=== PATIENT | female | born 1935 | race Caucasian/White ===

== ENCOUNTER 2019-04-28 19:26 | Inpatient (IN) | payer MEDICARE, OTHER ==
[2019-04-28] MEDS ORDERED: Enalaprilat Dihydrate 1.25 MG/ML VIAL SLOW IVP PRN (20:57)
[2019-04-28] MEDS ORDERED: hydrALAZINE 20 MG/ML VIAL SLOW IVP PRN (20:57)
[2019-04-28] MEDS ORDERED: Labetalol HCl 100 MG/20 ML VIAL SLOW IVP PRN (20:57)
[2019-04-28 21:37] LABS: #Basophils 0.1 thou/uL (0.0-0.2); #Eosinphils 0.3 thou/uL (0.0-0.7); #Lymphocytes 2.3 thou/uL (1.20-3.40); #Monocytes 0.9 thou/uL (0.11-0.59); #Neutrophils 8.3 thou/uL (1.40-6.50); %Basophils 0.9 % (0.0-1.0); %Eosinophils 2.5 % (0.0-10.0); %Lymphocytes 19.5 % (21.0-51.0); %Monocytes 7.3 % (0.0-10.0); %Neutrophils 69.9 % (42.0-75.0); Hemoglobin 15.9 g/dL (12.0-16.0); Mean Corpuscular HGB CONC 32.3 g/dL (32.0-36.0); Mean Corpuscular Hemoglobin 29.5 pg (27.0-31.0); Mean Corpuscular Volume 91.3 fL (78.0-98.0); Mean Platelet Volume 7.7 fL (7.4-10.4); Platelet Count 454 thou/uL (130-400); RBC Distribution Width 14.7 % (11.5-14.5); Red Blood Cell (RBC) Count 5.38 mill/uL (4.20-5.40); White Blood Cell (WBC) Count 11.9 thou/uL (4.8-10.8)
[2019-04-28 21:41] LABS: Anion Gap 13 mmol/L (10-20); BUN (Urea Nitrogen) 16 mg/dL (9.8-20.1); Calc. Creatinine Clearance 0 mL/min (70-130); Calcium 9.1 mg/dL (7.8-10.44); Carbon Dioxide 25 mmol/L (23-31); Chloride 104 mmol/L (98-107); Estimated GFR-MDRD 37; Glucose 111 mg/dL (83-110); Potassium 3.5 mmol/L (3.5-5.1); Sodium 138 mmol/L (136-145)
[2019-04-29 00:04] VITALS: BMI 28.4
[2019-04-29] MEDS ORDERED: Bisacodyl 10 MG SUPP PR PRN (02:06)
[2019-04-29] MEDS ORDERED: Senokot S 8.6-50 MG TAB PO PRN (02:06)
[2019-04-29] MEDS ORDERED: Guaifenesin DM 100-10/5 ML UDCUP PO PRN (02:06)
--- NOTE | 2019-04-29 02:45 | HP ---
REASON FOR ADMISSION: Acute CVA. HISTORY OF PRESENTING ILLNESS: The patient gives history of having slurred speech from last Friday. She also fell yesterday and bumped on her left leg. She has also been feeling weak on the left lower extremity. She was initially taken to [facility], from where she was transferred here. She was found to have facial weakness with 7th nerve palsy as well. She normally ambulates with a cane or walker. No prior history of stroke. She in fact had gone to see her reception agent, Dr. Vaughn, yesterday morning when he sent her to the emergency room as she was having symptoms of stroke. Blood pressure on arrival was 203/96. Has no complains of chest pain, palpitations, or PND. States she does not ambulate much beyond the activities of daily living. PAST MEDICAL AND SURGICAL HISTORY: The patient follows up with Dr. Cordova for her heart. She thinks she might have had a stress test recently. No history of cardiac disease or stenting in the past as far as she knows. No history of atrial fibrillation. The son at bedside mentions she might have peripheral vascular disease, hypothyroidism, likely chronic kidney disease and sees Dr. Vaughn, left total hip replacement. CURRENT MEDICATIONS: The patient is on hydralazine 25 mg twice daily, clonidine 0.1 mg twice daily, Toprol extended release 50 mg daily, levothyroxine 150 mcg p.o. daily. The patient is not taking statins. ALLERGIES: NO KNOWN DRUG ALLERGIES. PERSONAL HISTORY: Quit smoking 15 years ago prior to which has smoked 1 pack a day for nearly 40 years. Does not abuse alcohol or drugs. Lives with her . FAMILY HISTORY: Mother of pancreatic cancer at the age of 83. Father of natural causes at the age of 96 years. CODE STATUS: Do not attempt to resuscitate. This was confirmed with the patient. The son is at bedside as well. REVIEW OF SYSTEMS: CONSTITUTIONAL: Negative for weight loss or gain, ability to conduct usual activities. SKIN: Negative for rash, itching. EYES: Negative for double vision, pain. ENT/MOUTH: Negative for nose bleeding, neck stiffness, pain, tenderness. CARDIOVASCULAR: Negative for palpitations, dyspnea on exertion, orthopnea. RESPIRATORY: Negative for shortness of breath, wheezing, cough, hemoptysis, fever or night sweats. GASTROINTESTINAL: Negative for poor appetite, abdominal pain, heartburn, nausea , vomiting, constipation, or diarrhea. GENITOURINARY: Negative for urgency, frequency, dysuria, nocturia. MUSCULOSKELETAL: Negative for pain, swelling. NEUROLOGIC/PSYCHIATRIC: Negative for anxiety, depression. ALLERGY/IMMUNOLOGIC: Negative for skin rash, bleeding tendency. PHYSICAL EXAMINATION: GENERAL: The patient is an 83-year-old female who is currently not in any acute distress. VITAL SIGNS: Blood pressure 203/97, pulse 68 per minute, respiratory rate 18 per minute, temperature 98.5 degrees Fahrenheit, saturating 94% on room air. NECK: Supple. No elevated JVD. HEENT: Eyes; extraocular muscles intact. Pupils reacting to light. Oral cavity, mucous membranes are moist. No exudates or congestion. CARDIOVASCULAR SYSTEM: S1-S2 heard. Regular rhythm. RESPIRATORY SYSTEM: Air entry 1+ bilateral. No rales or rhonchi. ABDOMEN: Soft. Bowel sounds heard. No tenderness, rigidity, or guarding. EXTREMITIES: No peripheral edema or calf tenderness. VASCULAR SYSTEM: Peripheral pulses 1+ bilateral. No ischemic ulcerations or gangrene. CENTRAL NERVOUS SYSTEM: The patient has 7th nerve palsy with flattening of right nasolabial fold. Strength is 4/5 in the right upper and lower extremities, 5/5 in left upper and lower extremities. Reflexes are 2+ bilateral. Babinski is downgoing. PSYCHIATRIC SYSTEM: Patient's mood is euthymic. No hallucinations or delusions. LABORATORY DATA: EKG done shows sinus rhythm at 69 beats per minute. There is nonspecific ST-T wave changes noted. White count of 11.9, H and H 15 and 49, platelet count 454, MCV is 91, BUN 16, creatinine 1.3, serum glucose 111, bicarb is 25, albumin 3.8. Liver enzymes within normal limits. CK-MB 0.7. Troponin less than 0.01. CK level is 23. PT/INR, PTT within normal limits. Chest x-ray done shows pulmonary vascular congestion. CT brain without contrast done showed there was superimposed hypoattenuation watershed distribution age-indeterminate infarct in the posterior left cerebral hemisphere. Chronic microvascular ischemic changes were seen. CLINICAL IMPRESSION AND PLAN: Patient will be admitted to the Stroke Unit for acute CVA. She will be on stroke order set. We will obtain PT/OT, Speech, and Neurology consultations, MRI without contrast, echo with 2D Doppler, and carotid Dopplers will be obtained as well. The patient has hypertensive emergency and we will increase her clonidine to 0.1 mg three times daily, hydralazine to 25 mg 3 times daily. Add Lopressor 25 mg twice daily. She will be on aspirin, Lipitor 40 mg p.o. at bedtime. We will continue her home dose of Synthroid, DuoNeb q.6 hourly. We will continue to closely monitor her on Stroke Unit. Job ID: [id number] [facility]
[2019-04-29 04:34] LABS: #Basophils 0.1 thou/uL (0.0-0.2); #Eosinphils 0.4 thou/uL (0.0-0.7); #Lymphocytes 2.6 thou/uL (1.20-3.40); #Monocytes 0.9 thou/uL (0.11-0.59); #Neutrophils 7.8 thou/uL (1.40-6.50); %Basophils 0.7 % (0.0-1.0); %Lymphocytes 22.4 % (21.0-51.0); %Monocytes 7.3 % (0.0-10.0); %Neutrophils 66.5 % (42.0-75.0); Hemoglobin 16.1 g/dL (12.0-16.0); Mean Corpuscular HGB CONC 32.2 g/dL (32.0-36.0); Mean Corpuscular Hemoglobin 29.5 pg (27.0-31.0); Mean Corpuscular Volume 91.5 fL (78.0-98.0); Mean Platelet Volume 7.7 fL (7.4-10.4); Platelet Count 464 thou/uL (130-400); RBC Distribution Width 14.7 % (11.5-14.5); Red Blood Cell (RBC) Count 5.47 mill/uL (4.20-5.40); White Blood Cell (WBC) Count 11.7 thou/uL (4.8-10.8)
[2019-04-29 04:58] LABS: Anion Gap 14 mmol/L (10-20); BUN (Urea Nitrogen) 18 mg/dL (9.8-20.1); Calc. Creatinine Clearance 39 mL/min (70-130); Calcium 9.7 mg/dL (7.8-10.44); Carbon Dioxide 28 mmol/L (23-31); Cardiac Risk 5.9 (Less than 4.5); Chloride 103 mmol/L (98-107); Cholesterol 201 mg/dl (< 200 Desired); Estimated GFR-MDRD 36; Glucose 110 mg/dL (83-110); HDL Cholesterol 34 mg/dL (>60 Neg Risk); LDL Cholesterol, Calculated 131 mg/dL; Potassium 3.5 mmol/L (3.5-5.1); Sodium 141 mmol/L (136-145); Triglycerides 180 mg/dL (Less than 150)
[2019-04-29] MEDS: Levothyroxine 150 MCG TAB PO SCH (06:02)
[2019-04-29] MEDS ORDERED: cloNIDine 0.1 MG TAB PO SCH (09:00)
[2019-04-29] MEDS ORDERED: hydrALAZINE 25 MG TAB PO SCH (09:00)
[2019-04-29] MEDS ORDERED: Aspirin 81 mg Enteric Coated Tablet PO SCH (09:00)
[2019-04-29] MEDS ORDERED: Enoxaparin Sodium 30 MG/0.3 ML SYRINGE SC SCH (09:00)
[2019-04-29] MEDS: Metoprolol Tartrate 25 MG TAB PO SCH ×2 (09:30→20:27)
[2019-04-29] MEDS: cloNIDine 0.1 MG TAB PO SCH ×3 (09:30→20:26)
[2019-04-29] MEDS: hydrALAZINE 25 MG TAB PO SCH ×3 (09:30→20:27)
[2019-04-29] MEDS: Acetaminophen 325 MG TAB PO PRN (09:33)
[2019-04-29] MEDS ORDERED: Ondansetron PF 4 MG/2 ML Vial IVP PRN (10:49)
[2019-04-29] MEDS ORDERED: Ondansetron ODT 4 MG TAB PO PRN (10:49)
[2019-04-29] MEDS ORDERED: Labetalol HCl 100 MG/20 ML VIAL SLOW IVP PRN (10:50)
[2019-04-29] MEDS ORDERED: cloNIDine 0.1 MG TAB PO PRN (10:50)
--- NOTE | 2019-04-29 12:03 | MRI ---
MRI BRAIN WITHOUT CONTRAST: HISTORY: Stroke FINDINGS: There is restricted diffusion in the left posterior parietal cortex with focal areas of high T1 signa l. There are foci of low signal in this region on the gradient echo sequence. There is a small foci of restricted diffusion in the right posterior frontal lobe. There are multiple foci of T2 prolongation in the periventricular white matter, consistent with chron ic small vessel ischemic disease. The ventricular size is appropriate and the basilar cisterns are patent. There are changes of cortical atrophy. No evidence of midline shift or abnormal extra-axial f luid collections is seen. The visualized paranasal sinuses and mastoid air cells are well-aerated. IMPRESSION: 1. Acute left parietal lobe hemorrhagic infarction. 2. Acute nonhemorrhagic lacunar infarctions in the right posterior frontal lobe.
--- NOTE | 2019-04-29 14:11 | CON ---
DATE OF TELEMEDICINE CONSULTATION: 04-29-19 CHIEF COMPLAINT: Acute stroke. HISTORY OF PRESENT ILLNESS: Son and gave the medical history. The patient was at her renal doctor's office and she had slurred speech and facial droop, and they think she might have had weakness of the left side and this gradually progressed since last Friday and she was brought to the hospital. PREVIOUS MEDICAL HISTORY: Positive for hypothyroidism, chronic kidney disease. I think it is secondary to renal artery blockage and hypertension, and she also was tested for coronary artery disease. PAST SURGICAL HISTORY: As noted in the chart. No recent surgery, but the patient has been known to have peripheral vascular disease. Left total hip replacement. MEDICATIONS: At home: 1. Hydralazine. 2. Clonidine. 3. Toprol extended release. 4. Levothyroxine. She is not on any statins or aspirin. ALLERGIES: NO KNOWN DRUG ALLERGIES. PERSONAL HISTORY: She quit smoking 15 years ago prior to which she smoked one pack a day for 40 years. She does not abuse alcohol or drugs. She lives with her . FAMILY HISTORY: Mother of pancreatic cancer at age of 83. Father of natural causes at the age of 96 years. The patient's brother is 75. He had a heart attack about 6 weeks ago. Sister is 77 and healthy. The patient has a son, who is healthy. REVIEW OF SYSTEMS: Not reliable due to the patient's mental status and level of alertness. LABORATORY WORKUP: White count 11.7, hemoglobin 16.1, hematocrit 50, platelets 464. Sodium 141, potassium 3.5, chloride 103, bicarb 28, BUN 18, creatinine 1.39, glucose 110. BNP 1888.6, triglycerides 180, cholesterol 201, LDL 131, HDL 34. Report, MRI of the brain was completed at the time of this dictation and she had a left parietal lobe hemorrhagic infarct, acute nonhemorrhagic lacunes in the right posterior frontal lobe. PHYSICAL EXAMINATION: GENERAL APPEARANCE: Well-built, well-nourished lady. VITAL SIGNS: Temperature 97.6, pulse 54, O2 sats 92%, and blood pressure 157/ 73. CHEST: Clear vesicular breathing. CARDIOVASCULAR: S1 and S2 heard. No murmurs. ABDOMEN: Soft. NEUROLOGIC: Higher intellectual functions. Normal orientation to time, but sleepy. She is oriented to place and person. Cranial nerves, left facial droop and normal sensation of face bilaterally. Normal extraocular movements. Tongue midline. Normal hearing bilaterally and normal elevation of palate. Motor bulk normal. Tone normal. Strength 4/5 throughout with slight worsening on the left side compared to the right, but she was sleepy and did not put in good effort. Cerebellar, normal [id number] and [id number]. Sensory normal bilaterally. IMPRESSION AND RECOMMENDATIONS: The patient is an 83-year-old lady with chronic kidney disease and hypertension. She seems to have had change in her speech as well as facial droop. At this time, she was drowsy and could not give us full effort, but seems to be sleepy and not very confused, but oriented to place, time, and person. Her examination showed left-sided facial asymmetry and mild weakness on the left side. Her clinical exam findings are more from the acute nonhemorrhagic lacunar infarct in the right posterior frontal lobe and the left parietal lobe hemorrhagic infarct is likely causing her sleepiness and sedation, and the size of this hemorrhagic infarct is also small. Okay to add statin for right now and I will order a CT of the head to make sure there is no hemorrhage on the CT scan tomorrow and if the CT is negative, then we can start her on aspirin. I will follow up the patient again tomorrow. She also has other microvascular ischemic changes on the MRI sufficient enough to cause some cognitive issues. This needs to be reviewed at a later stage. Job ID: [id number] [facility]
[2019-04-29] MEDS ORDERED: Amlodipine 5 MG TAB PO SCH (15:00)
[2019-04-29] MEDS: Atorvastatin Calcium 40 MG TAB PO SCH (20:26)
--- NOTE | 2019-04-29 23:02 | PRG ---
DATE OF SERVICE: 04/29/2019 SUBJECTIVE: An 83-year-old female with peripheral vascular disease and CKD, presented to the hospital with stroke-like symptoms. Her blood pressure on arrival was 203/96. She denies any new focal deficit. Her mentation is gradually improving. She denies any new focal deficit. No chest pain, shortness of breath, palpitations, or seizures reported. REVIEW OF SYSTEMS: As discussed above. No nausea, vomiting, cough, shortness of breath, wheezing reported. CURRENT MEDICATIONS: Reviewed. Telemetry monitoring by my review showed sinus rhythm OBJECTIVE: VITAL SIGNS: Temperature 97.6, pulse rate of 54, respirations of 20, blood pressure was significantly elevated at 231/115 this morning, O2 saturation 92% on room air, respirations of 20. GENERAL: An 83-year-old female, in no apparent distress. Denies any new focal deficit. HEENT: Head, atraumatic and normocephalic. Sclerae anicteric. Moist mucous membranes. No oral lesion. NECK: Supple. No JVD. No carotid bruit. LUNGS: Clear to auscultation bilaterally. No wheezing, rales, or rhonchi. HEART: S1 and S2 present. Regular rate and rhythm. No rubs or gallops. ABDOMEN: Soft, nontender. Bowel sounds present. EXTREMITIES: No edema or calf tenderness. NEUROLOGIC: Cranial nerves 2 through 12 are normal on examination. Power was 4/5 on the left compared to the right. Sensation to touch was normal bilaterally. SKIN: Warm and dry. LYMPH NODE: No palpable lymph nodes in the neck. DIAGNOSTIC TESTS: MRI of the brain showed acute left parietal lobe hemorrhagic infarction as well as acute nonhemorrhagic lacunar infarction in the right posterior frontal lobe. Echocardiogram showed left ventricular ejection fraction of 55% to 60% with mild tricuspid regurgitation and trace mitral regurgitation. WBC was 11.9 with hemoglobin 15.9. Creatinine 1.39 with BUN 18. Fasting lipid showed triglyceride 180, cholesterol 201, LDL 131, HDL 34. BNP was 1888. IMPRESSION: 1. Acute left parietal lobe hemorrhagic infarction. 2. Acute nonhemorrhagic lacunar infarctions in the right posterior frontal lobe. 3. Hypertensive urgency. 4. Chronic kidney disease, stage 3. 5. Peripheral vascular disease. 6. Dyslipidemia. 7. History of renal artery stenosis. 8. Hypothyroidism. PLAN: The patient will be monitored in the stroke unit. Stroke Team has been consulted. The patient is do not resuscitate. I discussed the case with Nephrology, Dr. Koby Vaughn. Dr. Vaughn recommended to add amlodipine 5 mg daily for uncontrolled blood pressure. We will continue clonidine, hydralazine, and metoprolol. CT scan of the brain will be repeated per Neurology recommendation in a.m. We will hold aspirin for now due to hemorrhagic CVA. We will also hold Lovenox for DVT prophylaxis for now. Continue levothyroxine. Continue Physical Therapy and Occupational Therapy evaluation. The patient will probably need rehab placement. Plan of care was discussed with the patient and the family at the bedside. They stated understanding. Job ID: [id number]
[2019-04-29] MEDS: Melatonin 3 MG TAB PO PRN (23:24)
[2019-04-30] MEDS: Levothyroxine 150 MCG TAB PO SCH (06:44)
[2019-04-30] MEDS ORDERED: Amlodipine 5 MG TAB PO SCH (09:00)
[2019-04-30] MEDS ORDERED: Aspirin 325 mg Enteric Coated Tablet PO SCH (09:00)
--- NOTE | 2019-04-30 10:24 | CT ---
CT Brain WO Con: 04/30/2019 7:00 AM CLINICAL HISTORY: Hemorrhagic stroke. IMAGING TECHNIQUE: Multiple CT images were obtained of the brain without IV contrast. COMPARISON: MRI of the brain without contrast dated April 29, 2019 11:49 AM FINDINGS: Brain: The hemorrhagic infarct involving the left parietal region appears stable. Small remote lacun ar infarct involving the subcortical white matter of the right frontal region is stable. Severe chronic small vessel white matter ischemic changes stable. No midline shift is evident. Ventricles: Normal. No hydrocephalus.. Skull: Intact.. Visualized Paranasal sinuses: Clear.. Mastoid air cells:Clear. Extracranial soft tissues:Normal. IMPRESSION: Stable evolutionary changes involving the hemorrhagic infarct of the left parietal lobe. Stable small remote subcortical lacunar infarcts involving the right frontal lobe. No midline shift demonstrated.
[2019-04-30] MEDS: cloNIDine 0.1 MG TAB PO SCH ×3 (10:34→20:26)
[2019-04-30] MEDS: hydrALAZINE 25 MG TAB PO SCH ×3 (10:35→20:27)
[2019-04-30] MEDS: Metoprolol Tartrate 25 MG TAB PO SCH ×2 (10:35→20:27)
[2019-04-30] MEDS: Melatonin 3 MG TAB PO PRN (20:25)
[2019-04-30] MEDS: Atorvastatin Calcium 40 MG TAB PO SCH (20:25)
--- NOTE | 2019-04-30 22:41 | PDOC.HOSPP ---
- Subjective Encounter Date: 04/30/19 Encounter Time: 17:00 Subjective: Patient seen and examined for Acute CVA. No new focal deficits. No new complaints. No overnight events - Objective Vital Signs & Weight: Vital Signs (12 hours) Temp Pulse Resp BP BP Pulse Ox 04/30/19 20:27 62 180/88 H 04/30/19 20:26 180/88 H 04/30/19 20:00 98.4 F 67 18 157/74 H 93 L 04/30/19 15:55 97.6 F 59 L 17 93 L 04/30/19 15:28 185/86 H 04/30/19 15:27 56 L 185/86 H 04/30/19 12:20 57 L 18 146/62 H 04/30/19 11:48 97.9 F 78 17 210/110 H 93 L Weight Weight 176 lb 6.4 oz I&O: 04/29/19 04/30/19 05/01/19 06:59 06:59 06:59 Intake Total 450 901 480 Balance 450 901 480 Result Diagrams: 04/29/19 04:01 04/29/19 04:01 EKG Reviewed by me: Yes (Tele SR) Hospitalist ROS - Review of Systems Cardiovascular: denies: chest pain, palpitations, orthopnea, paroxysmal noc. dyspnea, edema, light headedness, other Gastrointestinal: denies: nausea, vomiting, abdominal pain, diarrhea, constipation, melena, hematochezia, other - Medication Medications: Active Medications Generic Name Dose Route Start Last Admin Trade Name Freq PRN Reason Stop Dose Admin Acetaminophen 650 mg 04/29/19 02:06 04/29/19 09:33 Tylenol PO 650 mg Q4H PRN Administration Headache/Fever/Mild Pain (1-3) Albuterol/Ipratropium 3 ml 04/29/19 07:00 04/30/19 19:13 Duoneb NEB Not Given [id number] EMILY Amlodipine Besylate 5 mg 04/30/19 09:00 04/30/19 10:34 Norvasc PO 5 mg DAILY EMILY Administration Atorvastatin Calcium 40 mg 04/29/19 21:00 04/30/19 20:25 Lipitor PO 40 mg HS EMILY Administration Clonidine 0.1 mg 04/29/19 09:00 04/30/19 20:26 Catapres PO 0.1 mg TID EMILY Administration Clonidine 0.1 mg 04/29/19 10:50 04/29/19 23:34 Catapres PO 0.1 mg Q4H PRN Administration SBP Greater Than 180 Enalaprilat 1.25 mg 04/28/19 20:57 04/29/19 07:57 Vasotec SLOW IVP 1.25 mg Q6H PRN Administration BP > 220/110 Hydralazine HCl 25 mg 04/29/19 09:00 04/30/19 20:27 Apresoline PO 25 mg TID EMILY Administration Levothyroxine Sodium 150 mcg 04/29/19 06:00 04/30/19 06:44 Synthroid PO Not Given 0600 EMILY Melatonin 3 mg 04/29/19 20:56 04/30/19 20:25 Melatonin PO 3 mg HS PRN Administration Insomnia Metoprolol Tartrate 25 mg 04/29/19 09:00 04/30/19 20:27 Lopressor PO 25 mg BID EMILY Administration Ondansetron HCl 4 mg 04/29/19 10:49 04/29/19 11:00 Zofran IVP 4 mg Q6H PRN Administration Nausea/Vomiting Sodium Chloride 10 ml 04/29/19 02:06 04/29/19 20:27 Flush - Normal Saline IVF 10 ml PRN PRN Administration Saline Flush - Exam General Appearance: NAD Neck: supple, no JVD Heart: RRR, no gallops Respiratory: CTAB, no rales Gastrointestinal: soft, non-tender, normal bowel sounds Extremities: no edema Neurological: no new deficit Hosp A/P - Plan DVT proph w/SCDs IMPRESSION: 1. Acute left parietal lobe hemorrhagic infarction. 2. Acute nonhemorrhagic lacunar infarctions in the right posterior frontal lobe. 3. Hypertensive urgency. 4. Chronic kidney disease, stage 3. 5. Peripheral vascular disease. 6. Dyslipidemia. 7. History of renal artery stenosis. 8. Hypothyroidism. PLAN: Repeat CT reviewed Dr Marshall recommended 81 mg ASA for stroke prophylaxis. Cont current anti HTN meds If BP uncontrolled - may increase Amlodipine to 5 mg BID if needed per Dr Vaughn AM labs PT/OT Cont other meds
[2019-05-01 04:39] LABS: #Basophils 0.1 thou/uL (0.0-0.2); #Eosinphils 0.4 thou/uL (0.0-0.7); #Lymphocytes 2.4 thou/uL (1.20-3.40); #Monocytes 0.9 thou/uL (0.11-0.59); #Neutrophils 6.8 thou/uL (1.40-6.50); %Basophils 0.7 % (0.0-1.0); %Eosinophils 3.5 % (0.0-10.0); %Monocytes 8.2 % (0.0-10.0); %Neutrophils 64.6 % (42.0-75.0); Hemoglobin 14.4 g/dL (12.0-16.0); Mean Corpuscular HGB CONC 31.1 g/dL (32.0-36.0); Mean Corpuscular Hemoglobin 28.6 pg (27.0-31.0); Mean Corpuscular Volume 92.2 fL (78.0-98.0); Mean Platelet Volume 7.8 fL (7.4-10.4); Platelet Count 457 thou/uL (130-400); RBC Distribution Width 14.7 % (11.5-14.5); Red Blood Cell (RBC) Count 5.02 mill/uL (4.20-5.40); White Blood Cell (WBC) Count 10.6 thou/uL (4.8-10.8)
[2019-05-01 05:03] LABS: Anion Gap 13 mmol/L (10-20); BUN (Urea Nitrogen) 19 mg/dL (9.8-20.1); Calc. Creatinine Clearance 40 mL/min (70-130); Calcium 9.3 mg/dL (7.8-10.44); Carbon Dioxide 27 mmol/L (23-31); Chloride 103 mmol/L (98-107); Estimated GFR-MDRD 37; Glucose 104 mg/dL (83-110); Magnesium 1.9 mg/dL (1.6-2.6); Potassium 3.5 mmol/L (3.5-5.1); Sodium 139 mmol/L (136-145)
[2019-05-01] MEDS: Levothyroxine 150 MCG TAB PO SCH (06:01)
[2019-05-01] MEDS: cloNIDine 0.1 MG TAB PO SCH ×3 (08:55→21:14)
[2019-05-01] MEDS: hydrALAZINE 25 MG TAB PO SCH ×3 (08:56→21:12)
[2019-05-01] MEDS: Metoprolol Tartrate 25 MG TAB PO SCH ×2 (08:56→21:14)
[2019-05-01] MEDS: Amlodipine 10 MG TAB PO SCH (08:57)
[2019-05-01] MEDS: Aspirin 81 mg Enteric Coated Tablet PO SCH (08:57)
--- NOTE | 2019-05-01 13:15 | PDOC.HOSPP ---
- Subjective Encounter Date: 05/01/19 Encounter Time: 07:00 Subjective: Pt seen for followup re: hemorrhagic stroke. Denies chest pain or shortness of breath. - Objective Vital Signs & Weight: Vital Signs (12 hours) Temp Pulse Pulse Pulse Resp BP BP 05/01/19 12:03 98.2 F 60 16 05/01/19 09:55 66 67 173/80 H 05/01/19 08:57 65 195/91 H 05/01/19 08:56 65 195/91 H 05/01/19 08:55 195/91 H 05/01/19 07:56 98.3 F 65 16 05/01/19 04:32 05/01/19 03:44 57 L 199/80 H 05/01/19 03:20 98.3 F 67 18 BP BP Pulse Ox 05/01/19 12:03 158/73 H 92 L 05/01/19 09:55 166/77 H 05/01/19 08:57 05/01/19 08:56 05/01/19 08:55 05/01/19 07:56 203/93 H 93 L 05/01/19 04:32 184/87 H 05/01/19 03:44 05/01/19 03:20 176/101 H 93 L Weight Weight 176 lb 6.4 oz I&O: 04/30/19 05/01/19 05/02/19 06:59 06:59 05:59 Intake Total 901 720 240 Balance 901 720 240 Result Diagrams: 05/01/19 04:05 05/01/19 04:05 Additional Labs: Labs and MARs reviewed by ms Hospitalist ROS - Review of Systems Cardiovascular: denies: chest pain, palpitations, orthopnea, paroxysmal noc. dyspnea, edema, light headedness Gastrointestinal: denies: nausea, vomiting, abdominal pain, diarrhea, constipation, melena, hematochezia - Medication Medications: Active Medications Generic Name Dose Route Start Last Admin Trade Name Freq PRN Reason Stop Dose Admin Acetaminophen 650 mg 04/29/19 02:06 04/29/19 09:33 Tylenol PO 650 mg Q4H PRN Administration Headache/Fever/Mild Pain (1-3) Albuterol/Ipratropium 3 ml 04/29/19 07:00 05/01/19 07:01 Duoneb NEB Not Given [id number] EMILY Amlodipine Besylate 10 mg 05/01/19 09:00 05/01/19 08:57 Norvasc PO 10 mg DAILY EMILY Administration Aspirin 81 mg 05/01/19 09:00 05/01/19 08:57 Ecotrin PO 81 mg DAILY EMILY Administration Atorvastatin Calcium 40 mg 04/29/19 21:00 04/30/19 20:25 Lipitor PO 40 mg HS EMILY Administration Clonidine 0.1 mg 04/29/19 09:00 05/01/19 08:55 Catapres PO 0.1 mg TID EMILY Administration Clonidine 0.1 mg 04/29/19 10:50 04/29/19 23:34 Catapres PO 0.1 mg Q4H PRN Administration SBP Greater Than 180 Enalaprilat 1.25 mg 04/28/19 20:57 04/29/19 07:57 Vasotec SLOW IVP 1.25 mg Q6H PRN Administration BP > 220/110 Hydralazine HCl 10 mg 04/28/19 20:57 05/01/19 03:44 Apresoline SLOW IVP 10 mg Q4H PRN Administration BP > 220/110 Hydralazine HCl 50 mg 05/01/19 09:00 05/01/19 08:56 Apresoline PO 50 mg TID EMILY Administration Levothyroxine Sodium 150 mcg 04/29/19 06:00 05/01/19 06:01 Synthroid PO 150 mcg 0600 EMILY Administration Melatonin 3 mg 04/29/19 20:56 04/30/19 20:25 Melatonin PO 3 mg HS PRN Administration Insomnia Metoprolol Tartrate 25 mg 04/29/19 09:00 05/01/19 08:56 Lopressor PO 25 mg BID EMILY Administration Ondansetron HCl 4 mg 04/29/19 10:49 04/29/19 11:00 Zofran IVP 4 mg Q6H PRN Administration Nausea/Vomiting Sodium Chloride 10 ml 04/29/19 02:06 04/29/19 20:27 Flush - Normal Saline IVF 10 ml PRN PRN Administration Saline Flush - Exam General Appearance: NAD Eye: anicteric sclera ENT: moist mucosa Neck: supple Heart: RRR Respiratory: CTAB Gastrointestinal: soft, non-tender Skin: no rashes Psychiatric: normal affect, normal behavior Hosp A/P - Plan PT/OT, out of bed/ambulate, DVT proph w/SCDs IMPRESSION: 1. Hypertensive urgency. 2. Chronic kidney disease, stage 3. 3. Acute left parietal lobe hemorrhagic infarction. 4. Acute nonhemorrhagic lacunar infarctions in the right posterior frontal lobe. 5. Peripheral vascular disease. 6. Dyslipidemia. 7. History of renal artery stenosis. 8. Hypothyroidism. PLAN: 81 mg ASA for stroke prophylaxis. Increase amlodipine to 10 mg daily and hydralazine to 50 mg PO TID. Continue metoprolol. Continue synthroid.
[2019-05-01] MEDS: Melatonin 3 MG TAB PO PRN (21:11)
[2019-05-01] MEDS: Atorvastatin Calcium 40 MG TAB PO SCH (21:12)
[2019-05-01] MEDS ORDERED: Artificial Tear Sol 15 ML BOT EA EYE PRN (21:59)
[2019-05-02] MEDS: Levothyroxine 150 MCG TAB PO SCH (06:15)
[2019-05-02] MEDS: cloNIDine 0.1 MG TAB PO SCH ×3 (09:23→22:05)
[2019-05-02] MEDS: hydrALAZINE 25 MG TAB PO SCH ×3 (09:23→22:06)
[2019-05-02] MEDS: Aspirin 81 mg Enteric Coated Tablet PO SCH (09:24)
[2019-05-02] MEDS: Metoprolol Tartrate 25 MG TAB PO SCH ×2 (09:25→22:07)
[2019-05-02] MEDS: Amlodipine 10 MG TAB PO SCH (09:25)
--- NOTE | 2019-05-02 15:33 | PDOC.HOSPP ---
- Subjective Encounter Date: 05/02/19 Encounter Time: 07:00 Subjective: Pt seen for followup re: hypertensive urgency. No new complaints today. No headache. - Objective Vital Signs & Weight: Vital Signs (12 hours) Temp Pulse Resp BP BP Pulse Ox 05/02/19 15:27 166/81 H 05/02/19 15:26 62 166/81 H 05/02/19 15:12 98.5 F 61 20 166/81 H 93 L 05/02/19 11:25 98.2 F 58 L 20 167/75 H 92 L 05/02/19 09:25 72 204/96 H 05/02/19 09:23 72 204/96 H 05/02/19 08:00 94 L 05/02/19 07:20 98.6 F 68 20 213/91 H 94 L Weight Weight 176 lb 6.4 oz I&O: 05/01/19 05/02/19 05/03/19 07:59 06:59 06:59 Intake Total 120 Balance 120 Result Diagrams: 05/01/19 04:05 05/01/19 04:05 Additional Labs: Labs and MARs reviewed by me EKG Reviewed by me: Yes (Tele: NSR) Hospitalist ROS - Review of Systems Cardiovascular: denies: chest pain, palpitations, orthopnea, paroxysmal noc. dyspnea, edema, light headedness Neurological: denies: weakness, numbness, incoordination, change in speech, confusion, seizures - Medication Medications: Active Medications Generic Name Dose Route Start Last Admin Trade Name Freq PRN Reason Stop Dose Admin Acetaminophen 650 mg 04/29/19 02:06 04/29/19 09:33 Tylenol PO 650 mg Q4H PRN Administration Headache/Fever/Mild Pain (1-3) Albuterol/Ipratropium 3 ml 04/29/19 07:00 05/02/19 12:49 Duoneb NEB Not Given P8CV-EQ EMILY Amlodipine Besylate 10 mg 05/01/19 09:00 05/02/19 09:25 Norvasc PO 10 mg DAILY EMILY Administration Aspirin 81 mg 05/01/19 09:00 05/02/19 09:24 Ecotrin PO 81 mg DAILY EMILY Administration Atorvastatin Calcium 40 mg 04/29/19 21:00 05/01/19 21:12 Lipitor PO 40 mg HS EMILY Administration Clonidine 0.1 mg 04/29/19 09:00 05/02/19 15:27 Catapres PO 0.1 mg TID EMILY Administration Clonidine 0.1 mg 04/29/19 10:50 04/29/19 23:34 Catapres PO 0.1 mg Q4H PRN Administration SBP Greater Than 180 Enalaprilat 1.25 mg 04/28/19 20:57 04/29/19 07:57 Vasotec SLOW IVP 1.25 mg Q6H PRN Administration BP > 220/110 Hydralazine HCl 10 mg 04/28/19 20:57 05/01/19 03:44 Apresoline SLOW IVP 10 mg Q4H PRN Administration BP > 220/110 Hydralazine HCl 75 mg 05/02/19 15:00 05/02/19 15:26 Apresoline PO 75 mg TID EMILY Administration Levothyroxine Sodium 150 mcg 04/29/19 06:00 05/02/19 06:15 Synthroid PO 150 mcg 0600 EMILY Administration Melatonin 3 mg 04/29/19 20:56 05/01/19 21:11 Melatonin PO 3 mg HS PRN Administration Insomnia Metoprolol Tartrate 25 mg 04/29/19 09:00 05/02/19 09:25 Lopressor PO 25 mg BID EMILY Administration Ondansetron HCl 4 mg 04/29/19 10:49 04/29/19 11:00 Zofran IVP 4 mg Q6H PRN Administration Nausea/Vomiting Sodium Chloride 10 ml 04/29/19 02:06 04/29/19 20:27 Flush - Normal Saline IVF 10 ml PRN PRN Administration Saline Flush - Exam General Appearance: NAD, awake alert Eye: anicteric sclera ENT: normocephalic atraumatic, no oropharyngeal lesions Neck: supple, no thyromegaly Heart: RRR, no rubs Respiratory: CTAB Gastrointestinal: soft, non-tender, normal bowel sounds Extremities: no clubbing Psychiatric: normal affect, normal behavior Hosp A/P - Plan IMPRESSION: 1. Hypertensive urgency. 2. Chronic kidney disease, stage 3. 3. Acute nonhemorrhagic lacunar infarctions in the right posterior frontal lobe. 4. Acute left parietal lobe hemorrhagic infarction. 5. Peripheral vascular disease. 6. Dyslipidemia. 7. History of renal artery stenosis. 8. Hypothyroidism. PLAN: Blood pressure is still high, increase hydralazine to 75 mg PO TID. Continuje 81 mg ASA for secondary stroke prophylaxis. Continue synthroid. Continue atorvastatin.
[2019-05-02] MEDS: Atorvastatin Calcium 40 MG TAB PO SCH (22:06)
[2019-05-02] MEDS: Melatonin 3 MG TAB PO PRN (22:12)
[2019-05-03] MEDS: Levothyroxine 150 MCG TAB PO SCH (06:27)
[2019-05-03] MEDS ORDERED: Metoprolol Tartrate 50 MG TAB PO SCH (09:00)
[2019-05-03] MEDS: Acetaminophen 325 MG TAB PO PRN ×2 (09:14→15:29)
[2019-05-03] MEDS: cloNIDine 0.1 MG TAB PO SCH ×2 (10:22→15:57)
[2019-05-03] MEDS: Amlodipine 10 MG TAB PO SCH (10:24)
[2019-05-03] MEDS: hydrALAZINE 25 MG TAB PO SCH ×2 (10:25→15:57)
[2019-05-03] MEDS: Aspirin 81 mg Enteric Coated Tablet PO SCH (10:27)
--- NOTE | 2019-05-03 12:34 | PDOC.HOSPP ---
- Subjective Encounter Date: 05/03/19 Encounter Time: 07:00 Subjective: Pt seen for followup re: hypertensive urgency. Nausea+, no other complaints. - Objective Vital Signs & Weight: Vital Signs (12 hours) Temp Pulse Resp BP BP Pulse Ox 05/03/19 11:00 97.9 F 60 18 150/74 H 93 L 05/03/19 10:25 71 206/93 H 05/03/19 10:24 71 206/93 H 05/03/19 10:22 206/93 H 05/03/19 03:49 98.2 F 68 18 171/79 H 91 L Weight Weight 176 lb 6.4 oz I&O: 05/02/19 05/03/19 05/04/19 06:59 06:59 06:59 Intake Total 480 480 Balance 480 480 Result Diagrams: 05/01/19 04:05 05/01/19 04:05 Additional Labs: Labs and MARs reviewed by me EKG Reviewed by me: Yes (Tele: NSR) Hospitalist ROS - Review of Systems Cardiovascular: denies: chest pain, palpitations, orthopnea, paroxysmal noc. dyspnea, edema, light headedness Gastrointestinal: reports: nausea. denies: vomiting, abdominal pain, diarrhea, constipation, melena, hematochezia - Medication Medications: Active Medications Generic Name Dose Route Start Last Admin Trade Name Freq PRN Reason Stop Dose Admin Acetaminophen 650 mg 04/29/19 02:06 05/03/19 09:14 Tylenol PO 325 mg Q4H PRN Administration Headache/Fever/Mild Pain (1-3) Albuterol/Ipratropium 3 ml 04/29/19 07:00 05/03/19 07:27 Duoneb NEB Not Given [id number]-PR EMILY Amlodipine Besylate 10 mg 05/01/19 09:00 05/03/19 10:24 Norvasc PO 10 mg DAILY EMILY Administration Artificial Tears 0 drop 05/01/19 21:59 05/02/19 22:04 Liquitears 15ml Bottle EA EYE 1 drop PRN PRN Administration Dry Eyes Aspirin 81 mg 05/01/19 09:00 05/03/19 10:27 Ecotrin PO 81 mg DAILY EMILY Administration Atorvastatin Calcium 40 mg 04/29/19 21:00 05/02/19 22:06 Lipitor PO 40 mg HS EMILY Administration Clonidine 0.1 mg 04/29/19 09:00 05/03/19 10:22 Catapres PO 0.1 mg TID EMILY Administration Clonidine 0.1 mg 04/29/19 10:50 04/29/19 23:34 Catapres PO 0.1 mg Q4H PRN Administration SBP Greater Than 180 Enalaprilat 1.25 mg 04/28/19 20:57 04/29/19 07:57 Vasotec SLOW IVP 1.25 mg Q6H PRN Administration BP > 220/110 Hydralazine HCl 10 mg 04/28/19 20:57 05/01/19 03:44 Apresoline SLOW IVP 10 mg Q4H PRN Administration BP > 220/110 Hydralazine HCl 75 mg 05/02/19 15:00 05/03/19 10:25 Apresoline PO 75 mg TID EMILY Administration Levothyroxine Sodium 150 mcg 04/29/19 06:00 05/03/19 06:27 Synthroid PO 150 mcg 0600 EMILY Administration Melatonin 3 mg 04/29/19 20:56 05/02/19 22:12 Melatonin PO 3 mg HS PRN Administration Insomnia Metoprolol Tartrate 50 mg 05/03/19 09:00 05/03/19 10:23 Lopressor PO 50 mg BID EMILY Administration Ondansetron HCl 4 mg 04/29/19 10:49 05/03/19 09:12 Zofran Odt PO 4 mg Q6H PRN Administration Nausea/Vomiting Ondansetron HCl 4 mg 04/29/19 10:49 04/29/19 11:00 Zofran IVP 4 mg Q6H PRN Administration Nausea/Vomiting Sodium Chloride 10 ml 04/29/19 02:06 04/29/19 20:27 Flush - Normal Saline IVF 10 ml PRN PRN Administration Saline Flush - Exam General Appearance: NAD, awake alert Eye: PERRL ENT: normocephalic atraumatic, no oropharyngeal lesions Neck: symmetric, no carotid bruit Heart: RRR, no rubs Respiratory: CTAB Gastrointestinal: soft, non-tender Musculoskeletal: normal strength Psychiatric: normal affect, normal behavior Hosp A/P - Plan plan discussed w/ family, PT/OT, out of bed/ambulate IMPRESSION: 1. Hypertensive urgency. 2. Chronic kidney disease, stage 3. 3. Acute nonhemorrhagic lacunar infarctions in the right posterior frontal lobe. 4. Acute left parietal lobe hemorrhagic infarction. 5. Peripheral vascular disease. 6. Dyslipidemia. 7. History of renal artery stenosis. 8. Hypothyroidism. PLAN: Blood pressure is still high, Lopressor added. Continue 81 mg ASA for secondary stroke prophylaxis. Continue atorvastatin. On synthroid. Rehab vs SNU
[2019-05-03 15:49] VITALS: TEMP 97.8
[2019-05-03 15:57] VITALS: BP 160/73
--- NOTE | 2019-05-03 19:24 | DIS ---
DATE OF ADMISSION: 04/28/2019 DATE OF DISCHARGE: 05/03/2019 PRIMARY CARE PROVIDER: Dr. Koby Hoffman. DISCHARGE DIAGNOSES: 1. Ischemic cerebrovascular accident. 2. Acute left parietal lobe hemorrhagic infarction. 3. Hypertensive urgency. 4. Dyslipidemia. 5. Chronic kidney disease stage 3.. CONDITION OF PATIENT ON THE DAY OF DISCHARGE: Stable. I assessed Ms. Peterson on the day of discharge. Please refer to my daily hospitalist progress note for further details regarding this [id number] encounter. CONSULTATIONS DURING THIS HOSPITALIZATION: Nephrology, Dr. Koby Vaughn and Neurology, Dr. Marshall. POST-DISCHARGE FOLLOWUP: The patient is advised to follow up with primary care provider in 1 week's time. She is also advised to follow up with Nephrology Service in 2 to 3 weeks' time. DISCHARGE MEDICATIONS: 1. Synthroid 150 mcg daily. 2. Amlodipine 10 mg daily. 3. Aspirin 81 mg daily. 4. Lipitor 40 mg at bedtime. 5. Clonidine 0.1 mg 3 times a day. 6. Hydralazine 75 mg 3 times a day. 7. Lopressor 50 mg 2 times a day. HOSPITAL COURSE: Ms. Peterson is a pleasant 83-year-old lady, who was admitted to [facility] on 04/28/2019, for stroke. Please refer to Dr. Oconnor's history and physical note dated 04/29/2019, for further details. MRI of the brain showed acute left parietal lobe hemorrhagic infarction and acute nonhemorrhagic lacunar infarctions in the right posterior frontal lobe. She was seen by Neurology and Nephrology Service. Neurology Service felt that her clinical presentation was secondary to the nonhemorrhagic lacunar infarctions. She has been started on low-dose aspirin. She continued to have elevations in blood pressures, with her blood pressure medications being titrated. She was seen by Therapy Services. She has been accepted for further management at [facility]. She is being discharged for the same. 2D echocardiogram showed left ventricular ejection fraction of 55% to 60%, normal-sized left atrium; no evidence of mitral valve stenosis; trace mitral regurgitation, mild tricuspid regurgitation, and mildly elevated pulmonary artery pressure. Many thanks for allowing me to participate in your patient's care. Please feel free to contact me with any questions or concerns. DISCHARGE DESTINATION: [facility]. TIME SPENT: Total amount of time spent coordinating this discharge: 32 minutes. Job ID: [id number]
== END 2019-05-03 19:22 | DRG 64 ==
LOC: ERS 19:26 → OBSVTOIN 22:18 → 2SE 22:18
PROVIDERS: ADMIT Internal Medicine; ATTEND Internal Medicine
PROC: B030ZZZ Magnetic Resonance Imaging (MRI) of Brain (ICD-10-PCS; principal; 2019-04-29)
DX: I61.1 Nontraumatic intracerebral hemorrhage in hemisphere, cortical (principal); I63.81 Other cerebral infarction due to occlusion or stenosis of small artery; Z66 Do not resuscitate; R29.702 NIHSS score 2; E03.9 Hypothyroidism, unspecified; I12.9 Hypertensive chronic kidney disease with stage 1 through stage 4 chronic kidney disease, or unspecified chronic kidney disease; E78.5 Hyperlipidemia, unspecified; N18.3 Chronic kidney disease, stage 3 (moderate); I16.0 Hypertensive urgency; I73.9 Peripheral vascular disease, unspecified; R47.81 Slurred speech; Z96.642 Presence of left artificial hip joint; Z87.891 Personal history of nicotine dependence; Z79.899 Other long term (current) drug therapy; Z79.890 Hormone replacement therapy; R29.810 Facial weakness
CPT/HCPCS: 36415; 70450; 70551; 80048; 80061; 83735; 83880; 84484; 85025; 93306; 99285; J0360; J1650; J2405; Q0162